=== PATIENT | female | born 1995 | race Caucasian/White ===

== ENCOUNTER 2021-06-17 15:08 | Inpatient (IN) | payer BC ==
[2021-06-17] MEDS ORDERED: Sodium Chloride 0.9% 10 ML Syringe FLUSH PRN (15:38)
[2021-06-17] MEDS ORDERED: Calcium Carbonate 500 MG Tab.Chew PO PRN (15:38)
[2021-06-17] MEDS ORDERED: Nalbuphine 10 MG/1 ML Vial IVPUSH PRN (15:38)
[2021-06-17] MEDS ORDERED: Oxytocin/Lactated Ringers 10 UNIT/1,000 ML BAG IV SCH ×2 (15:45)
--- NOTE | 2021-06-17 16:28 | PCM.LDHP ---
L&D History of Present Illness - General Date of Service: 06/17/21 Admit Problem/Dx: Patient Status Order with Admit Dx/Problem 06/17/21 15:38 Patient Status [ADT] Routine Admission Diagnosis/Problem Admission Diagnosis/Problem Source of Information: Patient History Limitations: Reports: No Limitations - History of Present Illness Introduction:: Patient is a 26 y/o at 39 6/7 wks. Was having irregular contractions earlier today. Got to clinic appointment and had ROM. Doing well otherwise. - Related Data Allergies/Adverse Reactions: Allergies Allergy/AdvReac Type Severity Reaction Status Date / Time No Known Allergies Allergy Verified 06/17/21 15:38 Past Medical History Psychiatric History: Reports: Anxiety - Past Surgical History HEENT Surgical History: Reports: Oral Surgery (Tooth extraction) Social & Family History - Tobacco Use Tobacco Use Status *Q: Never Tobacco User - Alcohol Use Alcohol Use History: No - Recreational Drug Use Recreational Drug Use: No H&P Review of Systems - Review of Systems: Review Of Systems: See Below General: Reports: No Symptoms Pulmonary: Reports: No Symptoms Cardiovascular: Reports: No Symptoms Gastrointestinal: Reports: Abdominal Pain Genitourinary: Reports: No Symptoms Musculoskeletal: Reports: No Symptoms Psychiatric: Reports: No Symptoms Neurological: Reports: No Symptoms L&D Exam - Exam Exam: See Below - Vital Signs Weight: 114.441 kg - OB Specific Contraction Intensity: Mild Movement: Active Heart Tones: Present Heart Tones per Min: 140 Heart Rate (FHR) Variability: Moderate (6-25 bpm) Presentation: Vertex - Romero Score Romero Score Cervix Position: Midposition Romero Score Consistency: Soft Romero Score Effacement: >80% Romero Score Dilation: 1-2 cm Romero Score 's Station: -2 Romero Score Total: 8 - Exam General: Alert, Oriented, Cooperative Lungs: Clear to Auscultation, Normal Respiratory Effort Cardiovascular: Regular Rate, Regular Rhythm GI/Abdominal Exam: Soft, Non-Tender Genitourinary: Normal external exam Back Exam: Normal Inspection Extremities: Normal Inspection Skin: Warm, Dry, Intact - Patient Data Lab Results Last 24 hrs: Laboratory Results - last 24 hr 06/17/21 Range/Units 15:55 WBC 9.05 (3.98-10.04) K/mm3 RBC 4.00 (3.98-5.22) M/mm3 Hgb 11.5 (11.2-15.7) gm/dl Hct 35.6 (34.1-44.9) % MCV 89.0 (79.4-94.8) fl MCH 28.8 (25.6-32.2) pg MCHC 32.3 (32.2-35.5) g/dl RDW Std Deviation 49.9 H (36.4-46.3) fL Plt Count 169 L (182-369) K/mm3 MPV 12.0 (9.4-12.3) fl Neut % (Auto) 72.2 H (34.0-71.1) % Lymph % (Auto) 20.9 (19.3-51.7) % Wilkes % (Auto) 6.1 (4.7-12.5) % Eos % (Auto) 0.3 L (0.7-5.8) Baso % (Auto) 0.1 (0.1-1.2) % Neut # (Auto) 6.53 H (1.56-6.13) K/mm3 Lymph # (Auto) 1.89 (1.18-3.74) K/mm3 [place]kes # (Auto) 0.55 H (0.24-0.36) K/mm3 Eos # (Auto) 0.03 L (0.04-0.36) K/mm3 Baso # (Auto) 0.01 (0.01-0.08) K/mm3 Result Diagrams: 06/17/21 15:55 - Problem List (1) Spontaneous rupture of amniotic membranes SNOMED Code(s): 561558030 ICD Code: MYP2961 - Status: Acute Current Visit: Yes (2) Rubella non-immune status, antepartum SNOMED Code(s): 614173880 ICD Code: O99.891 - OTH DISEASES AND CONDITIONS COMPLICATING ; Z28.3 - UNDERIMMUNIZATION STATUS Status: Acute Current Visit: Yes Problem List Initiated/Reviewed/Updated: Yes Orders Last 24hrs: Active Orders 24 hr Category Date Time Status Patient Status [ADT] Routine ADT 06/17/21 15:38 Active Activity as Tolerated [RC] PFP Care 06/17/21 15:38 Active Communication Order [RC] ASDIRECTED Care 06/17/21 15:38 Active Heart Tones [RC] ASDIRECTED Care 06/17/21 15:39 Active Non Stress Test [RC] PER UNIT ROUTINE Care 06/17/21 15:38 Active Notify Provider [RC] PFP Care 06/17/21 15:38 Active Notify Provider [RC] PRN Care 06/17/21 15:38 Active Peripheral IV Care [RC] . DIRECTED Care 06/17/21 15:39 Active Pump Management, Intrathecal [RC] ASDIRECTED Care 06/17/21 15:40 Active Urinary Catheter Assessment [RC] ASDIRECTED Care 06/17/21 15:38 Active Vital Signs [RC] PER UNIT ROUTINE Care 06/17/21 15:38 Active Regular Diet [DIET] Diet 06/17/21 Lunch Active CORONAVIRUS COVID-19 MARIA LUISA [MOLEC] Stat Lab 06/17/21 15:45 Received RAPID PLASMA REAGIN,RPR [CHEM] Routine Lab 06/17/21 15:55 Received TYPE AND SCREEN [BBK] Stat Lab 06/17/21 15:55 Received Calcium Carbonate [Tums] Med 06/17/21 15:38 Active 1,000 mg PO Q2H PRN Lactated Ringers [Ringers, Lactated] 1,000 ml Med 06/17/21 15:45 Active IV ASDIRECTED Nalbuphine [Nubain] Med 06/17/21 15:38 Active 10 mg IVPUSH Q2H PRN Oxytocin/Lactated Ringers [Pitocin in LR 10 Units/1,000 Med 06/17/21 15:45 A ctive ML] 10 unit in 1,000 ml IV .CONTINUOUS Oxytocin/Lactated Ringers [Pitocin in LR 10 Units/1,000 Med 06/17/21 15:45 Active ML] 10 unit in 1,000 ml IV TITRATE Sodium Chloride 0.9% [Saline Flush] Med 06/17/21 15:38 Active 10 ml FLUSH ASDIRECTED PRN Electronic Heart Tones Ext w TOCO [WOMSER] Oth 06/17/21 15:38 Ordered Routine Electronic Heart Tones Internal [WOMSER] Per Unit Oth 06/17/21 15:38 Ordered Routine Peripheral IV Insertion Adult [OM.PC] Routine Oth 06/17/21 15:38 Ordered Resuscitation Status Routine Resus Stat 06/17/21 15:38 Ordered Medication Orders Calcium Carbonate/Glycine (Calcium Carbonate 500 Mg Tab.Chew) 1,000 mg PO Q2H PRN PRN Reason: Indigestion Oxytocin/Lactated Ringer's (Pitocin In Lr 10 Units/1,000 Ml) 10 unit in 1,000 mls @ 12 mls/hr IV TITRATE SOURAV; Protocol Oxytocin/Lactated Ringer's (Pitocin In Lr 10 Units/1,000 Ml) 10 unit in 1,000 mls @ 500 mls/hr IV .CONTINUOUS SOURAV Lactated Ringer's (Ringers, Lactated) 1,000 mls @ 100 mls/hr IV ASDIRECTED SOURAV Nalbuphine HCl (Nalbuphine 10 Mg/1 Ml Vial) 10 mg IVPUSH Q2H PRN PRN Reason: Pain Sodium Chloride (Sodium Chloride 0.9% 10 Ml Syringe) 10 ml FLUSH ASDIRECTED PRN PRN Reason: Keep Vein Open Assessment/Plan Comment:: * Labs to be done * GBS negative * Consider pitocin augmentation if no regular contractions 4-6 hours after ROM * Pain management per patient preference * Anticipate
[2021-06-17] MEDS: Lactated Ringers 1,000 ML IV SCH ×2 (18:20→19:27)
[2021-06-17] MEDS ORDERED: Ondansetron 4 MG/2 ML SDV IVPUSH PRN (19:07)
[2021-06-17] MEDS ORDERED: ePHEDrine 50 MG/ML SDV IVPUSH PRN (19:07)
[2021-06-17] MEDS ORDERED: fentaNYL 100 MCG/2 ML SDV EPIDUR PRN (19:07)
--- NOTE | 2021-06-17 19:09 | PCM.PREANE ---
Preanesthetic Assessment - Procedure Proposed Procedure: Epidural - Anesthesia/Transfusion/Family Hx Anesthesia History: No Prior Anesthesia Family History of Anesthesia Reaction: No Transfusion History: No Prior Transfusion(s) Intubation History: Unknown - Review of Systems General: No Symptoms Pulmonary: No Symptoms Cardiovascular: No Symptoms Gastrointestinal: No Symptoms, Constipation (with ), Nausea, Vomiting Neurological: No Symptoms, Tingling (CTS with ) Other: Reports: None - Physical Assessment NPO Status Date: 06/17/21 NPO Status Time: 18:00 Vital Signs: Last Vital Signs Temp 36.9 C 06/17/21 15:38 Pulse 85 06/17/21 15:38 Resp 16 06/17/21 15:38 BP 120/78 06/17/21 15:38 Pulse Ox 100 06/17/21 15:38 Height: 1.65 m Weight: 114.441 kg ASA Class: 3 Mental Status: Alert & Oriented x3 Airway Class: Mallampati = 2 Dentition: Reports: Normal Dentition, Caries Thyro-Mental Finger Breadths: 3 Mouth Opening Finger Breadths: 3 ROM/Head Extension: Full Lungs: Clear to Auscultation, Normal Respiratory Effort Cardiovascular: Regular Rate, Regular Rhythm, No Murmurs - Lab Values: Laboratory Last Values WBC 9.05 K/mm3 (3.98-10.04) 06/17/21 15:55 RBC 4.00 M/mm3 (3.98-5.22) 06/17/21 15:55 Hgb 11.5 gm/dl (11.2-15.7) 06/17/21 15:55 Hct 35.6 % (34.1-44.9) 06/17/21 15:55 MCV 89.0 fl (79.4-94.8) 06/17/21 15:55 MCH 28.8 pg (25.6-32.2) 06/17/21 15:55 MCHC 32.3 g/dl (32.2-35.5) 06/17/21 15:55 RDW Std Deviation 49.9 fL (36.4-46.3) H 06/17/21 15:55 Plt Count 169 K/mm3 (182-369) L 06/17/21 15:55 MPV 12.0 fl (9.4-12.3) 06/17/21 15:55 Neut % (Auto) 72.2 % (34.0-71.1) H 06/17/21 15:55 Lymph % (Auto) 20.9 % (19.3-51.7) 06/17/21 15:55 [place] % (Auto) 6.1 % (4.7-12.5) 06/17/21 15:55 Eos % (Auto) 0.3 (0.7-5.8) L 06/17/21 15:55 Baso % (Auto) 0.1 % (0.1-1.2) 06/17/21 15:55 Neut # (Auto) 6.53 K/mm3 (1.56-6.13) H 06/17/21 15:55 Lymph # (Auto) 1.89 K/mm3 (1.18-3.74) 06/17/21 15:55 [place] # (Auto) 0.55 K/mm3 (0.24-0.36) H 06/17/21 15:55 Eos # (Auto) 0.03 K/mm3 (0.04-0.36) L 06/17/21 15:55 Baso # (Auto) 0.01 K/mm3 (0.01-0.08) 06/17/21 15:55 SARS-CoV-2 RNA (MARIA LUISA) Negative (NEGATIVE) 06/17/21 15:45 Blood Type A POSITIVE 06/17/21 15:55 Gel Antibody Screen Negative 06/17/21 15:55 Above labs reviewed and noted and within acceptable ranges to proceed with epidural. - Allergies Allergies/Adverse Reactions: Allergies Allergy/AdvReac Type Severity Reaction Status Date / Time No Known Allergies Allergy Verified 06/17/21 15:38 - Anesthesia Plan Pre-Op Medication Ordered: None - Acknowledgements Anesthesia Type Planned: Epidural Pt an Appropriate Candidate for the Planned Anesthesia: Yes Alternatives and Risks of Anesthesia Discussed w Pt/Guardian: Yes Pt/Guardian Understands and Agrees with Anesthesia Plan: Yes PreAnesthesia Questionnaire [employer] History: Reports: Psychiatric History: Reports: Anxiety - Past Surgical History HEENT Surgical History: Reports: Oral Surgery (Tooth extraction) - SUBSTANCE USE Tobacco Use Status *Q: Never Tobacco User Second Hand Smoke Exposure: No Recreational Drug Use History: No - CURRENT (IN HOUSE) MEDS Current Meds: Current Medications Calcium Carbonate/Glycine (Calcium Carbonate 500 Mg Tab.Chew) 1,000 mg PO Q2H PRN PRN Reason: Indigestion Oxytocin/Lactated Ringer's (Pitocin In Lr 10 Units/1,000 Ml) 10 unit in 1,000 mls @ 12 mls/hr IV TITRATE SOURAV; Protocol Oxytocin/Lactated Ringer's (Pitocin In Lr 10 Units/1,000 Ml) 10 unit in 1,000 mls @ 500 mls/hr IV .CONTINUOUS SOURAV Lactated Ringer's (Ringers, Lactated) 1,000 mls @ 100 mls/hr IV ASDIRECTED SOURAV Last Admin: 06/17/21 18:20 Dose: 100 mls/hr Documented by: Nalbuphine HCl (Nalbuphine 10 Mg/1 Ml Vial) 10 mg IVPUSH Q2H PRN PRN Reason: Pain Sodium Chloride (Sodium Chloride 0.9% 10 Ml Syringe) 10 ml FLUSH ASDIRECTED PRN PRN Reason: Keep Vein Open
[2021-06-17] MEDS ORDERED: Bupivacaine/fentaNYL/NS 100 ML Bag EPIDUR SCH (19:15)
[2021-06-17] MEDS ORDERED: fentaNYL 100 MCG/2 ML SDV ONE (19:16)
--- NOTE | 2021-06-18 03:42 | PCM.DEL ---
L & D Note - General Info Date of Service: 06/18/21 - Delivery Note Labor: Spontaneous Delivery Outcome: Livebirth Delivery Method: Spontaneous Vaginal Delivery-Single Delivery Mode: Spontaneous Presentation: Left Occiput Anterior (JUAN) Nuchal Cord: None Anesthesia Type: Epidural Amniotic Fluid Description: Clear Laceration: 2nd Degree, Perineal Suture type: Vicryl Suture size: 2-0 Placenta: Intact, Spontaneous Cord: 3 Vessels Estimated Blood Loss: 100 Resuscitation Needed: Yes : Bulb Syringe, Stimulated, Warmed, [place] Used Delivery Comments (Free Text/Narrative):: Patient found to be complete and began pushing. With maternal pushing effort fe kenna head delivered from NISSA presentation. No nuchal cord present. With gentle downward traction the shoulders and body delivered. Infant placed on maternal abdomen. Cord clamped and cut. Cord blood obtained. Placenta allowed time to separate and expelled intact. Inspection of perineum showed a 2nd degree laceration. This was repaired with a 2-0 Vicryl in the typical fashion. - General Info Date of Service: 06/18/21 - Patient Data Vitals - Most Recent: Last Vital Signs Temp 36.9 C 06/17/21 15:38 Pulse 85 06/17/21 15:38 Resp 16 06/17/21 15:38 BP 120/78 06/17/21 15:38 Pulse Ox 100 06/17/21 15:38 Weight - Most Recent: 114.441 kg I&O - Last 24 Hours: Intake & Output 06/17/21 06/17/21 06/18/21 14:59 22:59 06:59 Intake Total 1000 Output Total 175 Balance 1000 -175 - Exam Urinary Catheter Total Time: 0Days 0Hours - Problem List & Annotations (1) Spontaneous rupture of amniotic membranes SNOMED Code(s): 416019288 Code(s): REJ7673 - Status: Acute Current Visit: Yes (2) Rubella non-immune status, antepartum SNOMED Code(s): 628707694 Code(s): O99.891 - OTH DISEASES AND CONDITIONS COMPLICATING ; Z28.3 - UNDERIMMUNIZATION STATUS Status: Acute Current Visit: Yes (3) Vaginal delivery SNOMED Code(s): 979470510 Code(s): O80 - ENCOUNTER FOR FULL-TERM UNCOMPLICATED DELIVERY Status: Acute Current Visit: Yes - Problem List Review Problem List Initiated/Reviewed/Updated: Yes - My Orders Last 24 Hours: My Active Orders 06/17/21 Lunch Regular Diet [DIET] 06/17/21 15:38 Patient Status [ADT] Routine Activity as Tolerated [RC] PFP Communication Order [RC] ASDIRECTED Notify Provider [RC] PFP Notify Provider [RC] PRN Urinary Catheter Assessment [RC] ASDIRECTED Vital Signs [RC] PER UNIT ROUTINE Calcium Carbonate [Tums] 1,000 mg PO Q2H PRN Nalbuphine [Nubain] 10 mg IVPUSH Q2H PRN Sodium Chloride 0.9% [Saline Flush] 10 ml FLUSH ASDIRECTED PRN Electronic Heart Tones Ext w TOCO [WOMSER] Routine Electronic Heart Tones Internal [WOMSER] Per Unit Routine Peripheral IV Insertion Adult [OM.PC] Routine Resuscitation Status Routine 06/17/21 15:39 Peripheral IV Care [RC] . DIRECTED 06/17/21 15:40 Pump Management, Intrathecal [RC] ASDIRECTED 06/17/21 15:45 Lactated Ringers [Ringers, Lactated] 1,000 ml IV ASDIRECTED Oxytocin/Lactated Ringers [Pitocin in LR 10 Units/1,000 ML] 10 unit in 1,000 ml IV .CONTINUOUS Oxytocin/Lactated Ringers [Pitocin in LR 10 Units/1,000 ML] 10 unit in 1,000 ml IV TITRATE 06/17/21 15:55 RAPID PLASMA REAGIN,RPR [CHEM] Routine - Assessment Assessment:: PPD#0 - Plan Plan:: * Routine cares * Breast feeding * Discharge home in 2 days
[2021-06-18] MEDS ORDERED: Benzocaine/Menthol 20%-0.5% Spray 78 GM Cannister TOP PRN (04:57)
[2021-06-18] MEDS ORDERED: Bupivacaine 0.25% 10 ML SDV ONE (05:00)
[2021-06-18] MEDS: Ibuprofen 600 MG Tab PO PRN ×2 (05:34→19:32)
[2021-06-18] MEDS: Witch Hazel Medicated Pads 40/Jar TOP PRN (05:34)
--- NOTE | 2021-06-18 07:05 | PCM48HPAN ---
Post Anesthesia Note - EVALUATION WITHIN 48HRS OF ANESTHETIC Vital Signs in Normal Range: Yes Patient Participated in Evaluation: Yes Respiratory Function Stable: Yes Airway Patent: Yes Cardiovascular Function Stable: Yes Hydration Status Stable: Yes Pain Control Satisfactory: Yes Nausea and Vomiting Control Satisfactory: Yes Mental Status Recovered: Yes Vital Signs: Last Vital Signs Temp 36.9 C 06/17/21 15:38 Pulse 85 06/17/21 15:38 Resp 16 06/17/21 15:38 BP 120/78 06/17/21 15:38 Pulse Ox 100 06/17/21 15:38 - COMMENTS/OBSERVATIONS Free Text/Narrative:: no anesthesia complications noted
[2021-06-18] MEDS ORDERED: Acetaminophen 325 MG Tab PO PRN (07:28)
[2021-06-18] MEDS: Docusate Sodium 100 MG Cap PO PRN (19:33)
[2021-06-18] MEDS ORDERED: Measles, Mumps & Rubella Vaccine 0.5 ML SDV SUBCUT ONE (22:29)
--- NOTE | 2021-06-19 06:42 | PCM.PNPP ---
- General Info Date of Service: 06/19/21 Functional Status: Reports: Pain Controlled, Tolerating Diet, Ambulating, Urinating - Review of Systems General: Reports: No Symptoms Pulmonary: Reports: No Symptoms Cardiovascular: Reports: No Symptoms Gastrointestinal: Reports: No Symptoms Genitourinary: Reports: No Symptoms Musculoskeletal: Reports: No Symptoms Neurological: Reports: No Symptoms - General Info Date of Service: 06/19/21 - Patient Data Vital Signs - Most Recent: Last Vital Signs Temp 36.6 C 06/19/21 03:01 Pulse 79 06/19/21 03:01 Resp 13 06/19/21 03:01 BP 115/65 06/19/21 03:01 Pulse Ox 94 L 06/19/21 03:01 Weight - Most Recent: 114.441 kg I&O - Last 24 Hours: Intake & Output 06/18/21 06/18/21 06/19/21 14:59 22:59 06:59 Intake Total 0 240 Balance 0 240 Lab Results - Last 24 Hours: Laboratory Results - last 24 hr 06/17/21 Range/Units 15:55 RPR Non-reactive (NONREACTIVE) Med Orders - Current: Current Medications Acetaminophen (Acetaminophen 325 Mg Tab) 650 mg PO Q4H PRN PRN Reason: mild pain or fever Benzocaine/Menthol (Benzocaine/Menthol 20%-0.5% [place] 78 Gm Cannister) 1 gm TOP ASDIRECTED PRN PRN Reason: perineal discomfort Last Admin: 06/18/21 05:34 Dose: 1 can Documented by: Docusate Sodium (Docusate Sodium 100 Mg Cap) 100 mg PO BID PRN PRN Reason: Constipation Last Admin: 06/18/21 19:33 Dose: 100 mg Documented by: Ibuprofen (Ibuprofen 600 Mg Tab) 600 mg PO Q6H PRN PRN Reason: Pain Last Admin: 06/18/21 19:32 Dose: 600 mg Documented by: Janelle Maza (Witch Shaunna Medicated Pads 40/Jar) 1 pad TOP ASDIRECTED PRN PRN Reason: perineal discomfort Last Admin: 06/18/21 05:34 Dose: 1 tub Documented by: Discontinued Medications Bupivacaine HCl (Bupivacaine 0.25% 10 Ml Sdv) 10 ml .ROUTE .STK-MED ONE Stop: 06/18/21 05:01 Calcium Carbonate/Glycine (Calcium Carbonate 500 Mg Tab.Chew) 1,000 mg PO Q2H PRN PRN Reason: Indigestion Ephedrine Sulfate (Ephedrine 50 Mg/Ml Sdv) 5 mg IVPUSH ASDIRECTED PRN PRN Reason: Hypotension Fentanyl (Fentanyl 100 Mcg/2 Ml Sdv) 100 mcg EPIDUR Q3H PRN PRN Reason: Pain Last Admin: 06/17/21 19:20 Dose: 100 mcg Documented by: Fentanyl (Fentanyl 100 Mcg/2 Ml Sdv) Confirm Administered Dose 100 mcg .ROUTE .STK-MED ONE Stop: 06/17/21 19:17 Last Admin: 06/17/21 21:44 Dose: Not Given Documented by: Fentanyl/Bupivacaine HCl (Bupivacaine/Fentanyl/Ns 100 Ml Bag) 100 ml EPIDUR ASDIRECTED SOURAV Last Admin: 06/17/21 19:20 Dose: 100 ml Documented by: Oxytocin/Lactated Ringer's (Pitocin In Lr 10 Units/1,000 Ml) 10 unit in 1,000 mls @ 12 mls/hr IV TITRATE SOURAV; Protocol Last Titration: 06/18/21 03:14 Dose: 83.33 munits/min, 500 mls/hr Documented by: Oxytocin/Lactated Ringer's (Pitocin In Lr 10 Units/1,000 Ml) 10 unit in 1,000 mls @ 500 mls/hr IV .CONTINUOUS SOURAV Lactated Ringer's (Ringers, Lactated) 1,000 mls @ 100 mls/hr IV ASDIRECTED SOURAV Last Admin: 06/17/21 19:27 Dose: 100 mls/hr Documented by: Measles/Mumps/Rubella Vaccine Live (Measles, Mumps & Rubella Vaccine 0.5 Ml Sdv) 0.5 ml SUBCUT .ONCE ONE Stop: 06/18/21 22:30 Miscellaneous Medication (Phenylephrine Hcl In 0.9% Nacl 1 Mg/10 Ml Syringe) 0.1 mg IVPUSH Q10M PRN PRN Reason: Hypotension Nalbuphine HCl (Nalbuphine 10 Mg/1 Ml Vial) 10 mg IVPUSH Q2H PRN PRN Reason: Pain Ondansetron HCl (Ondansetron 4 Mg/2 Ml Sdv) 4 mg IVPUSH ONETIME PRN PRN Reason: Nausea/Vomiting Sodium Chloride (Sodium Chloride 0.9% 10 Ml Syringe) 10 ml FLUSH ASDIRECTED PRN PRN Reason: Keep Vein Open - Interaction Infant Disposition, : in Room with Family Infant Interaction: Holding Infant Feeding: Breastfed ; Nursed Well Support Person: - Recovery Exam Fundal Tone: Firm Fundal Level: 1 Fingerbreadths Below Umbilicus Fundal Placement: Midline Lochia Amount: Small Lochia Color: Rubra/Red Perineum Description: Other (see below) Other Perinuem Description: 2nd degree repaired, encourged to sit in whirlpool Episiotomy/Laceration: Approximated Bladder Status: Voiding Urinary Elimination: Voided - Exam General: Alert, Oriented GI/Abdominal Exam: Soft, Non-Tender - Problem List & Annotations (1) Spontaneous rupture of amniotic membranes SNOMED Code(s): 835069651 Code(s): GGM3844 - Status: Acute Current Visit: Yes (2) Rubella non-immune status, antepartum SNOMED Code(s): 268911999 Code(s): O99.891 - OTH DISEASES AND CONDITIONS COMPLICATING ; Z28.3 - UNDERIMMUNIZATION STATUS Status: Acute Current Visit: Yes (3) Vaginal delivery SNOMED Code(s): 027415128 Code(s): O80 - ENCOUNTER FOR FULL-TERM UNCOMPLICATED DELIVERY Status: Acute Current Visit: Yes - Problem List Review Problem List Initiated/Reviewed/Updated: Yes - My Orders Last 24 Hours: My Active Orders 06/18/21 07:28 Acetaminophen [TylenoL] 650 mg PO Q4H PRN Docusate Sodium [Colace] 100 mg PO BID PRN Heat Therapy [OM.PC] PRN 06/18/21 07:28 Activity as Tolerated [RC] PER UNIT ROUTINE Vital Signs [RC] 03,09,15,21 Assess Lochia [WOMSER] Per Unit Routine Assess Uterine Involution [WOMSER] Per Unit Routine Breast Pump [WOMSER] Per Unit Routine Ice Therapy [OM.PC] Per Unit Routine Perineal Care [OM.PC] Per Unit Routine Peripheral IV Discontinue [OM.PC] Routine Sitz Bath [OM.PC] Per Unit Routine 06/18/21 Lunch Regular Diet [DIET] 06/19/21 06:41 Ready for Discharge [RC] PER UNIT ROUTINE 11/12/21 07:28 Heat Therapy [OM.PC] PRN - Assessment Assessment:: PPD#1 - Plan Plan:: * Routine cares * Breast feeding * Discharge home today if Pediatrics discharges baby
--- NOTE | 2021-06-19 06:42 | PCM.DCSUM1 ---
Discharge Summary - Discharge Data Discharge Date: 06/19/21 Discharge Disposition: Home, Self-Care 01 Condition: Good - Referral to Home Health Primary Care Physician: Stephanie Lemons MD - Discharge Diagnosis/Problem(s) (1) Spontaneous rupture of amniotic membranes SNOMED Code(s): 439283617 ICD Code: AFE9018 - Status: Acute Current Visit: Yes (2) Rubella non-immune status, antepartum SNOMED Code(s): 985727476 ICD Code: O99.891 - OTH DISEASES AND CONDITIONS COMPLICATING ; Z28.3 - UNDERIMMUNIZATION STATUS Status: Acute Current Visit: Yes (3) Vaginal delivery SNOMED Code(s): 930105387 ICD Code: O80 - ENCOUNTER FOR FULL-TERM UNCOMPLICATED DELIVERY Status: Ac pala Current Visit: Yes - Patient Summary/Data Complications: None Consults: None Recommended Follow-up Testing/Procedures: Follow up in 3 weeks for check Hospital Course: 26 y/o at 39 6/7 wks who presented with SROM. Progressed well. Underwent an uncomplicated . See delivery note. did well and was discharged home on PPD#1 - Patient Instructions Diet: Regular Diet as Tolerated Activity: As Tolerated Activity, Other: Pelvic rest for 6 weeks Driving: May Drive Today Showering/Bathing: May Shower Showering/Bathing, Other: May Bathe Notify Provider of: Fever, Increased Pain, Swelling and Redness, Drainage, Nausea and/or Vomiting - Discharge Plan *PRESCRIPTION DRUG MONITORING PROGRAM REVIEWED*: No *COPY OF PRESCRIPTION DRUG MONITORING REPORT IN PATIENT [place]ROY: No Home Medications: Home Meds Docusate Sodium [Colace] 100 mg PO BID PRN cap 06/19/21 [Rx] Ibuprofen [Motrin] 600 mg PO Q6H PRN tablet 06/19/21 [Rx] Referrals: Stephanie Lemons MD [Primary Care Provider] - (3 weeks for check ) - Discharge Summary/Plan Comment DC Time >30 min.: No Total # of Minutes for Discharge Time: 15 - Patient Data Vitals - Most Recent: Last Vital Signs Temp 36.6 C 06/19/21 03:01 Pulse 79 06/19/21 03:01 Resp 13 06/19/21 03:01 BP 115/65 06/19/21 03:01 Pulse Ox 94 L 11/12/21 03:01 Weight - Most Recent: 114.441 kg I&O - Last 24 hours: Intake & Output 06/18/21 06/18/21 06/19/21 14:59 22:59 06:59 Intake Total 0 240 Balance 0 240 Lab Results - Last 24 hrs: Laboratory Results - last 24 hr 06/17/21 Range/Units 15:55 RPR Non-reactive (NONREACTIVE) Med Orders - Current: Current Medications Acetaminophen (Acetaminophen 325 Mg Tab) 650 mg PO Q4H PRN PRN Reason: mild pain or fever Benzocaine/Menthol (Benzocaine/Menthol 20%-0.5% [place] 78 Gm Cannister) 1 gm TOP ASDIRECTED PRN PRN Reason: perineal discomfort Last Admin: 06/18/21 05:34 Dose: 1 can Documented by: Docusate Sodium (Docusate Sodium 100 Mg Cap) 100 mg PO BID PRN PRN Reason: Constipation Last Admin: 06/18/21 19:33 Dose: 100 mg Documented by: Ibuprofen (Ibuprofen 600 Mg Tab) 600 mg PO Q6H PRN PRN Reason: Pain Last Admin: 06/18/21 19:32 Dose: 600 mg Documented by: Janelle Shaunna (Witch Shaunna Medicated Pads 40/Jar) 1 pad TOP ASDIRECTED PRN PRN Reason: perineal discomfort Last Admin: 06/18/21 05:34 Dose: 1 tub Documented by: Discontinued Medications Bupivacaine HCl (Bupivacaine 0.25% 10 Ml Sdv) 10 ml .ROUTE .STK-MED ONE Stop: 06/18/21 05:01 Calcium Carbonate/Glycine (Calcium Carbonate 500 Mg Tab.Chew) 1,000 mg PO Q2H PRN PRN Reason: Indigestion Ephedrine Sulfate (Ephedrine 50 Mg/Ml Sdv) 5 mg IVPUSH ASDIRECTED PRN PRN Reason: Hypotension Fentanyl (Fentanyl 100 Mcg/2 Ml Sdv) 100 mcg EPIDUR Q3H PRN PRN Reason: Pain Last Admin: 06/17/21 19:20 Dose: 100 mcg Documented by: Fentanyl (Fentanyl 100 Mcg/2 Ml Sdv) Confirm Administered Dose 100 mcg .ROUTE .STK-MED ONE Stop: 06/17/21 19:17 Last Admin: 06/17/21 21:44 Dose: Not Given Documented by: Fentanyl/Bupivacaine HCl (Bupivacaine/Fentanyl/Ns 100 Ml Bag) 100 ml EPIDUR A SDIRECTED SOURAV Last Admin: 06/17/21 19:20 Dose: 100 ml Documented by: Oxytocin/Lactated Ringer's (Pitocin In Lr 10 Units/1,000 Ml) 10 unit in 1,000 mls @ 12 mls/hr IV TITRATE SOURAV; Protocol Last Titration: 06/18/21 03:14 Dose: 83.33 munits/min, 500 mls/hr Documented by: Oxytocin/Lactated Ringer's (Pitocin In Lr 10 Units/1,000 Ml) 10 unit in 1,000 mls @ 500 mls/hr IV .CONTINUOUS SOURAV Lactated Ringer's (Ringers, Lactated) 1,000 mls @ 100 mls/hr IV ASDIRECTED SOURAV Last Admin: 06/17/21 19:27 Dose: 100 mls/hr Documented by: Measles/Mumps/Rubella Vaccine Live (Measles, Mumps & Rubella Vaccine 0.5 Ml Sdv) 0.5 ml SUBCUT .ONCE ONE Stop: 06/18/21 22:30 Miscellaneous Medication (Phenylephrine Hcl In 0.9% Nacl 1 Mg/10 Ml Syringe) 0.1 mg IVPUSH Q10M PRN PRN Reason: Hypotension Nalbuphine HCl (Nalbuphine 10 Mg/1 Ml Vial) 10 mg IVPUSH Q2H PRN PRN Reason: Pain Ondansetron HCl (Ondansetron 4 Mg/2 Ml Sdv) 4 mg IVPUSH ONETIME PRN PRN Reason: Nausea/Vomiting Sodium Chloride (Sodium Chloride 0.9% 10 Ml Syringe) 10 ml FLUSH ASDIRECTED PRN PRN Reason: Keep Vein Open
[2021-06-19] MEDS: Docusate Sodium 100 MG Cap PO PRN ×2 (08:19→21:10)
[2021-06-19] MEDS: Ibuprofen 600 MG Tab PO PRN (14:30)
--- NOTE | 2021-06-20 08:04 | PCM.SN.2 ---
- Free Text/Narrative Note: Post Progress Note PPD #2 Subjective: Doing well overall. Ambulating without difficulty. Lochia minimal. Voiding without difficulty. Tolerating regular diet without nausea or vomiting. Pain controlled with oral medications. Breast-feeding with minimal difficulty. Objective: Vitals: Vital Signs - 24 hr 06/19/21 06/19/21 06/19/21 08:16 14:29 21:07 Temperature 36.4 C 36.4 C 36.7 C Pulse, 89 87 78 Peripheral Respiratory 16 18 13 Rate Blood Pressure 138/81 119/70 124/51 L O2 Sat by Pulse 97 96 93 L Oximetry 06/20/21 03:03 Temperature 36.6 C Pulse, 71 Peripheral Respiratory 13 Rate Blood Pressure 126/76 O2 Sat by Pulse 92 L Oximetry Physical Exam General: Alert and oriented, no acute distress Lungs: Clear to auscultation bilaterally Heart: Regular rate and rhythm Abdomen: Soft, minimal appropriate tenderness, non-distended, fundus midline, nontender, and at the umbilicus Extremities: Trace edema in bilateral lower extremities to mid shins, no calf tenderness bilaterally ASSESSMENT: 26-year-old female -0-0-1 s/p normal vaginal delivery PPD #2, complicated by rubella nonimmune status and anxiety PLAN: Doing well Breast-feeding with minimal difficulty. Assist as needed Lochia minimal. Continue to monitor for appropriate lochia. Continue routine care Patient received MMR vaccine on PPD #1 Discharge home today Conrado Spencer MD 8:03 AM 06/20/2021
--- NOTE | 2021-06-20 08:05 | PCM.DCSUM1 ---
Discharge Summary - Hospital Course Free Text/Narrative:: - Delivery Note Labor: Spontaneous Delivery Outcome: Livebirth Infant Delivery Method: Spontaneous Vaginal Delivery-Single Delivery Mode: Spontaneous Presentation: Left Occiput Anterior (JUAN) Nuchal Cord: None Anesthesia Type: Epidural Amniotic Fluid Description: Clear Laceration: 2nd Degree, Perineal Suture type: Vicryl Suture size: 2-0 Placenta: Intact, Spontaneous Cord: 3 Vessels Estimated Blood Loss: 100 Resuscitation Needed: Yes : Bulb Syringe, Stimulated, Warmed, [place] Used Delivery Comments (Free Text/Narrative):: Patient found to be complete and began pushing. With maternal pushing effort head delivered from NISSA presentation. No nuchal cord present. With gentle downward traction the shoulders and body delivered. Infant placed on maternal abdomen. Cord clamped and cut. Cord blood obtained. Placenta allowed time to separate and expelled intact. Inspection of perineum showed a 2nd degree laceration. This was repaired with a 2-0 Vicryl in the typical fashion. - Discharge Data Discharge Date: 06/20/21 Discharge Disposition: Home, Self-Care 01 Condition: Good - Referral to Home Health Primary Care Physician: Stephanie Lemons MD - Discharge Diagnosis/Problem(s) (1) Rubella non-immune status, antepartum SNOMED Code(s): 234891816 ICD Code: O99.891 - OTH DISEASES AND CONDITIONS COMPLICATING ; Z28.3 - UNDERIMMUNIZATION STATUS Status: Acute Current Visit: Yes (2) Spontaneous rupture of amniotic membranes SNOMED Code(s): 432306737 ICD Code: [id number] - Status: Acute Current Visit: Yes (3) Vaginal delivery SNOMED Code(s): 670105373 ICD Code: O80 - ENCOUNTER FOR FULL-TERM UNCOMPLICATED DELIVERY Status: Acute Current Visit: Yes - Patient Summary/Data Complications: None Consults: None Hospital Course: 26 y/o at 39 6/7 wks who presented with SROM. Progressed well. Underwent an uncomplicated . See delivery note. did well and was discharged home on PPD#2 - Patient Instructions Diet: Regular Diet as Tolerated Activity: As Tolerated Activity, Other: Pelvic rest for 6 weeks Driving: May Drive Today Showering/Bathing: May Shower Showering/Bathing, Other: May Bathe Notify Provider of: Fever, Increased Pain, Swelling and Redness, Drainage, Nausea and/or Vomiting - Discharge Plan *PRESCRIPTION DRUG MONITORING PROGRAM REVIEWED*: Not Applicable *COPY OF PRESCRIPTION DRUG MONITORING REPORT IN PATIENT [place]: Not Applicable Home Medications: Home Meds Docusate Sodium [Colace] 100 mg PO BID PRN cap 06/19/21 [Rx] Ibuprofen [Motrin] 600 mg PO Q6H PRN tablet 06/19/21 [Rx] Patient Handouts: and Breast Care, Care After Vaginal Delivery Referrals: Stephanie Lemons MD [Primary Care Provider] - (3 weeks for check ) - Discharge Summary/Plan Comment DC Time >30 min.: No Total # of Minutes for Discharge Time: 15 minutes - Patient Data Vitals - Most Recent: Last Vital Signs Temp 36.6 C 06/20/21 03:03 Pulse 71 06/20/21 03:03 Resp 13 06/20/21 03:03 BP 126/76 06/20/21 03:03 Pulse Ox 92 L 06/20/21 03:03 Weight - Most Recent: 114.441 kg I&O - Last 24 hours: Intake & Output 06/19/21 06/20/21 06/20/21 22:59 06:59 14:59 Intake Total 720 Balance 720 Med Orders - Current: Current Medications Acetaminophen (Acetaminophen 325 Mg Tab) 650 mg PO Q4H PRN PRN Reason: mild pain or fever Benzocaine/Menthol (Benzocaine/Menthol 20%-0.5% [place] 78 Gm Cannister) 1 gm TOP ASDIRECTED PRN PRN Reason: perineal discomfort Last Admin: 06/18/21 05:34 Dose: 1 can Documented by: Docusate Sodium (Docusate Sodium 100 Mg Cap) 100 mg PO BID PRN PRN Reason: Constipation Last Admin: 06/19/21 21:10 Dose: 100 mg Documented by: Ibuprofen (Ibuprofen 600 Mg Tab) 600 mg PO Q6H PRN PRN Reason: Pain Last Admin: 06/19/21 14:30 Dose: 600 mg Documented by: Janelle Maza ([facility] [place] Medicated Pads 40/Jar) 1 pad TOP ASDIRECTED PRN PRN Reason: perineal discomfort Last Admin: 06/18/21 05:34 Dose: 1 tub Documented by: Discontinued Medications Bupivacaine HCl (Bupivacaine 0.25% 10 Ml Sdv) 10 ml .ROUTE .STK-MED ONE Stop: 06/18/21 05:01 Calcium Carbonate/Glycine (Calcium Carbonate 500 Mg Tab.Chew) 1,000 mg PO Q2H PRN PRN Reason: Indigestion Ephedrine Sulfate (Ephedrine 50 Mg/Ml Sdv) 5 mg IVPUSH ASDIRECTED PRN PRN Reason: Hypotension Fentanyl (Fentanyl 100 Mcg/2 Ml Sdv) 100 mcg EPIDUR Q3H PRN PRN Reason: Pain Last Admin: 06/17/21 19:20 Dose: 100 mcg Documented by: Fentanyl (Fentanyl 100 Mcg/2 Ml Sdv) Confirm Administered Dose 100 mcg .ROUTE .STK-MED ONE Stop: 06/17/21 19:17 Last Admin: 06/17/21 21:44 Dose: Not Given Documented by: Fentanyl/Bupivacaine HCl (Bupivacaine/Fentanyl/Ns 100 Ml Bag) 100 ml EPIDUR ASDIRECTED SOURAV Last Admin: 06/17/21 19:20 Dose: 100 ml Documented by: Oxytocin/Lactated Ringer's (Pitocin In Lr 10 Units/1,000 Ml) 10 unit in 1,000 mls @ 12 mls/hr IV TITRATE SOURAV; Protocol Last Titration: 06/18/21 03:14 Dose: 83.33 munits/min, 500 mls/hr Documented by: Oxytocin/Lactated Ringer's (Pitocin In Lr 10 Units/1,000 Ml) 10 unit in 1,000 mls @ 500 mls/hr IV .CONTINUOUS SOURAV Lactated Ringer's (Ringers, Lactated) 1,000 mls @ 100 mls/hr IV ASDIRECTED SOURAV Last Admin: 06/17/21 19:27 Dose: 100 mls/hr Documented by: Measles/Mumps/Rubella Vaccine Live (Measles, Mumps & Rubella Vaccine 0.5 Ml Sdv) 0.5 ml SUBCUT .ONCE ONE Stop: 06/18/21 22:30 Last Admin: 06/19/21 08:19 Dose: 0.5 ml Documented by: Miscellaneous Medication (Phenylephrine Hcl In 0.9% Nacl 1 Mg/10 Ml Syringe) 0.1 mg IVPUSH Q10M PRN PRN Reason: Hypotension Nalbuphine HCl (Nalbuphine 10 Mg/1 Ml Vial) 10 mg IVPUSH Q2H PRN PRN Reason: Pain Ondansetron HCl (Ondansetron 4 Mg/2 Ml Sdv) 4 mg IVPUSH ONETIME PRN PRN Reason: Nausea/Vomiting Sodium Chloride (Sodium Chloride 0.9% 10 Ml Syringe) 10 ml FLUSH ASDIRECTED PRN PRN Reason: Keep Vein Open
[2021-06-20] MEDS: Ibuprofen 600 MG Tab PO PRN (08:24)
[2021-06-20] MEDS: Docusate Sodium 100 MG Cap PO PRN (08:24)
[2021-06-20] MEDS: Witch Hazel Medicated Pads 40/Jar TOP PRN (12:17)
== END 2021-06-20 12:20 | disposition home or self-care (01) | DRG 560 ==
LOC: JD.OBCHECK 15:08 → JD.OB 15:10 → JD.OBCHECK 15:37 → JD.OB 15:38 → OBSVTOIN 06-18 03:14 → JD.OB 06-18 03:15
PROVIDERS: ADMIT Obstetrics & Gynecology; ATTEND Obstetrics & Gynecology
PROC: 10E0XZZ Delivery of Products of Conception, External Approach (ICD-10-PCS; principal; 2021-06-18)
PROC: 0KQM0ZZ Repair Perineum Muscle, Open Approach (ICD-10-PCS; 2021-06-18)
PROC: 3E0R3BZ Introduction of Anesthetic Agent into Spinal Canal, Percutaneous Approach (ICD-10-PCS; 2021-06-18)
PROC: 00HU33Z Insertion of Infusion Device into Spinal Canal, Percutaneous Approach (ICD-10-PCS; 2021-06-18)
PROC: 3E0234Z Introduction of Serum, Toxoid and Vaccine into Muscle, Percutaneous Approach (ICD-10-PCS; 2021-06-19)
DX: O70.1 Second degree perineal laceration during delivery (principal); Z20.822 Contact with and (suspected) exposure to COVID-19; Z23 Encounter for immunization; Z37.0 Single live birth; Z3A.39 39 weeks gestation of pregnancy
CPT/HCPCS: 01967; 36415; 51701; 51702; 59025; 59409; 85025; 86592; 86850; 86900; 86901; 90471; 90707; A9270-GY; J2590; J3010; J3490; J7120; U0002